=== PATIENT | female | born 1975 | race Caucasian/White ===

== ENCOUNTER 2016-09-01 05:25 | Inpatient (IN) | payer OTHER ==
[~2016-09-01] VITALS: Ht 165.1 cm; Wt 108.0 kg
[2016-09-01] MEDS ORDERED: Sodium Citrate-Citric Acid 15 mL Solution PO SCH (06:00)
[2016-09-01] MEDS ORDERED: Lidocaine 2% 5 mL Topical Jelly MUC_MEMBRM ONE (06:00)
[2016-09-01] MEDS ORDERED: Lactated Ringer's 1,000 ML IV SCH ×2 (06:00→09:26)
[2016-09-01] MEDS ORDERED: Hemorrhage Kit, Post Partum XX ONE ×2 (06:00→10:05)
[2016-09-01] MEDS ORDERED: Oxytocin 10 Unit/mL Inj IM PRN ×2 (06:00→10:05)
[2016-09-01] MEDS ORDERED: Methylergonovine 0.2 mg/mL Inj IM PRN ×2 (06:00→10:05)
[2016-09-01] MEDS ORDERED: Carboprost 250 mCg/mL Inj IM PRN ×2 (06:00→10:05)
[2016-09-01] MEDS ORDERED: CeFAZolin Inj 2,000 MG in Dextrose 5%-Pha MIX 50 ML IV SCH (06:45)
[2016-09-01 06:46] LABS: Mean Corpuscular Hemoglobin 29.3 pg (27.0-35.0); Mean Corpuscular Volume 88.9 fL (81-100)
--- NOTE | 2016-09-01 09:25 | PCM.HPANE ---
Patient Data Date of Service: September 01, 2016 Surgeon Admitting Provider:Kirill Rojas MD Attending Provider:Kirill Rojas MD Primary Care Physician:Junito Tatum MD Other Provider:Mirian Shepard Anesthesia Reason for Visit repeat repeat Ht/WT & BMI Body Mass Index Allergies Coded Allergies: prazosin (Verified Adverse Reaction, Severe, severe reflex tachycardia, ) Past Anesthesia History Anesthesia History: Positive for:: Anesthesia Reactions (angioedema after intrathecal morphine, tolerates other routs without problem.) Diabetes History Hx Diabetes?: No MRSA MRSA: No Medications Hypertension Medication: No History History of ENT Problems?: No HEENT History: Denies:: Abnormal Airway Cataracts Difficult Intubation Dysphagia Glaucoma Hearing Problem Sinus Problem TMJ Denture Type: None Teeth Condition: Broken Teeth Hx of Heart Problems?: No Cardiovascular History: Denies:: AICD Abdominal Aortic Aneurism Atrial Fibrillation Cardiac Surgery Chest Pain Congestive Heart Failure Coronary Artery Disease Edema Heart Murmur Hypertension Irregular Heartbeat Pacemaker Peripheral Vascular Rheumatic Fever Thrombophlebitis Valvular Heart Disease Hx of Respiratory Problem?: No Respiratory History: Denies:: Asthma COPD Chest Surgery Cough Dyspnea Emphysema Hemoptysis Oxygen Administration Pneumonia Pulmonary Embolism Tuberculosis Use of C-PAP Machine Use of Inhalers / NEBS Hx Neurologic Problems?: No Neurological History: Denies:: Alzheimer's Disease CVA Dementia Dizziness Headaches Multiple Sclerosis Parkinson's Disease Peripheral Neuropathy Seizures TIA Hx of GI Problems?: Yes Gastrointestinal History: Positive for:: Gastroesphageal Reflux Hx of Problems?: No Genitourinary History: Denies:: HX of Hemodialysis Kidney Stones Urinary Tract Infection HX of Peritoneal Dialysis: No Female Hx: Positive for:: Currently Skin History: Denies:: History Skin Disorders? Pressure Ulcers Hx Musculoskeletal Problems?: Yes Musculoskeletal History: Positive for:: Back Injury Degenerative Joint Hx of Psycho/Social Problems?: No Psycho Social History: Denies:: Anxiety Bipolar Disorder Hx Depression Suicide Attempt Hx Surgeries?: Yes Hx Any Other Health Problems?: No Other History: Denies:: Cancer Endocrine Disease Hospitalization Thyroid Disease History Blood Transfusions: Denies:: Accept Blood Products? Blood Transfuse Reaction Blood Transfusions Hx Alcohol Use: NoHx Substance Use: No Smoking Status: Former Smoker Have You Smoked inLast 12 mo: No Stop/Bang Treated for Sleep Apnea?: No Do You Have a CPAP Machine?: No S-Snoring: Do You Snore Loudly: No T-Tired: feel tired, fatigued: No O-Obsered: Observed not breath: No P-Blood Pressure: treated: No B- Body Mass Index > 35 kg/m2: Yes A- Age over 50: No N- Neck Large Circumference: No G- Gender Male: No KERON Risk Assessment: Low Risk, <3 Yes Risk Assessment Category Category 1A: Patient has history of documented sleep apnea, and HAS NOT received any narcotic, sedative or anesthesia administration during this stay. Category 1B: Patient has history of documented sleep apnea, and HAS received any narcotic , sedative or anesthesia administration during this stay Category 2: Patient has SUSPECTED Obstructive Sleep Apnea, and HAS received any narcotic , sedative or anesthesia administration during this stay. Category 3: Patient has SUSPECTED Obstructive Sleep Apnea and HAS NOT received narcotic, sedative or anesthesia administration during this stay. Category 4: Outpatient in Procedural Areas with known sleep apnea or who screen positive for High Risk via the STOP/BANG questionnaire. Exam Exam General Appearance: Oriented X3 HEENT/AIRWAY: MP 2 Lungs: Clear to Auscultation Heart: Exam Unremarkable Meds/Labs/Diagnostics Admission Meds Current Medications Lactated Ringer's (Lr) 1,000 ml @ 125 mls/hr Q8H IV Last administered on 06:34; Start 09/01/16 at 06:00; Stop 09/01/16 at 13:59 Citric Acid/ Sodium Citrate (Bicitra) 30 ml PREOP PO Last administered on 08:12; Start 09/01/16 at 06:00; Stop 09/01/16 at 06:40; Status DC Labs Test 09/01/16 06:25 White Blood Count 7.8th/mm3 (3.8-10.1) Red Blood Count 3.69mil/mm3 (3.90-5.20) Hemoglobin 10.8g/dL (12.0-15.6) Hematocrit 32.8% (35.0-46.0) Mean Corpuscular Volume 88.9fL (81-100) Mean Corpuscular Hemoglobin 29.3pg (27.0-35.0) Mean Corpuscular Hemoglobin Concent 32.9% (32.0-37.0) Red Cell Distribution Width 14.8% (12.3-15.4) Platelet Count 284bil/L (150-400) Plan Impression Patient chart reviewed, patient interviewed and anesthestic plan with risks, benefits, and alternatives discussed, and informed consent obtained. ASA Physical Status: ASA2 Mod Systemic Disease Anesthetic Plan: SAB Bene/Risks/Altern/Consents: Yes HP Complete Prior to Induction: Yes Jensen Lipscomb MD September 01, 2016 09:25
[2016-09-01] MEDS ORDERED: Lactated Ringer's 500 ML IV PRN (09:26)
[2016-09-01] MEDS ORDERED: MetoCLOpramide 5 mg/mL 2 mL Inj IVPUSH PRN (09:30)
[2016-09-01] MEDS ORDERED: HYDROmorphone 1 mg/mL Inj IVPUSH PRN (09:30)
[2016-09-01] MEDS ORDERED: fentaNYL-PF 50 mCg/mL 2 mL Inj IVPUSH PRN (09:30)
[2016-09-01] MEDS ORDERED: Dexamethasone 4 mg/mL Inj IVPUSH PRN (09:30)
[2016-09-01] MEDS ORDERED: Ondansetron 2 mg/mL 2 mL Inj IVPUSH PRN ×2 (09:30→10:05)
[2016-09-01] MEDS ORDERED: Phenylephrine 10,000 mCg/mL Inj IVPUSH PRN (09:30)
[2016-09-01] MEDS ORDERED: EPHEDrine Sulfate 50 mg/mL Inj IVPUSH PRN (09:30)
[2016-09-01] MEDS: Lactated Ringer's 1,000 ML IV SCH ×2 (10:04→18:04)
[2016-09-01] MEDS ORDERED: Dextrose 5% 500 ML IV SCH (10:04)
[2016-09-01] MEDS ORDERED: LANOlin HPA 7 Gm Ointment TOPICAL PRN (10:05)
[2016-09-01] MEDS ORDERED: Sodium Chloride LOK Flush 10 mL Syringe IVFLUSH PRN (10:05)
[2016-09-01] MEDS ORDERED: HYDROmorphone PCA 0.2 mg/mL 30 mL Inj IV PRN (10:05)
[2016-09-01] MEDS ORDERED: diphenhydrAMINE 50 mg Capsule PO PRN (10:05)
[2016-09-01] MEDS ORDERED: Oxytocin 30 Units/500 mL LR 30 UNITS in IV Premix 1 EACH IV PRN (10:05)
[2016-09-01] MEDS ORDERED: hydrOXYzine Pamoate 25 mg Capsule PO PRN (10:05)
[2016-09-01] MEDS ORDERED: Oxytocin 30 Units/500 mL LR Premix IV ONE (10:10)
--- NOTE | 2016-09-01 10:50 | OP ---
[address] [address] OPERATIVE REPORT PATIENT: LOVE ZARATE : 1975 MR#: [id number] ADMIT: 09/01/2016 JOB ID: [id number] DATE OF SURGERY: 09/01/2016 PREOPERATIVE DIAGNOSIS(ES): 1. A 39-week gestation. 2. Previous delivery x2. 3. Advanced maternal age. POSTOPERATIVE DIAGNOSIS(ES): 1. A 39-week gestation. 2. Previous delivery x2. 3. Advanced maternal age. PROCEDURE PERFORMED: 1. Repeat low transverse delivery. 2. Bilateral tubal ligation using modified [place] method. SURGEON: Kirill Rojas MD. CONTRACTING EXECUTIVE: Kaycee Costello MD. ANESTHESIA: Spinal. ESTIMATED BLOOD LOSS: 600 mL. COMPLICATIONS: None. PATHOLOGY SENT: Portion of right and left fallopian tubes. FINDINGS AT TIME OF SURGERY: Normal appearing uterus, fallopian tubes and ovaries bilaterally. There were no significant intraperitoneal adhesions. DESCRIPTION OF PROCEDURE: The patient was taken to the operating room, where her spinal anesthesia was found be adequate. She was placed in a lithotomy position in a leftward tilt, and prepared and draped in a normal sterile fashion. A Pfannenstiel incision was made with a scalpel through her previous scar. This was carried down to the underlying fascia, which was nicked in the midline and extended laterally with the [place] scissors. The underlying rectus muscle was dissected off with blunt and sharp dissection both superiorly and inferiorly. The rectus muscles in midline, and the peritoneal cavity was entered bluntly with the surgeon's hands. This incision was extended with gentle traction. The lower uterine segment was identified. A bladder flap was created, and the uterus incised in low transverse fashion with the scalpel. The was delivered in a cephalic presentation. One minute was allowed prior to doubly clamping and ligating the umbilical cord. The cord was cut, and the handed off to the waiting nurses and respiratory therapist. Cord blood was sent. The placenta was removed manually. The uterus was exteriorized, cleared of all clots and debris. The uterine incision was repaired in two layers with 0 Vicryl suture. A third suture of 0 Vicryl was used for hemostasis. A bilateral tubal ligation was then performed using a modified [place] method. The right fallopian tube was identified, followed out to the fimbriated end, grasped in the midportion with a Rafiq clamp. A defect was made in the mesosalpinx, and two free ties of 0 chromic suture were used to isolate and ligate a segment of the fallopian tube. The intervening segment was excised and sent to Pathology. In a similar fashion, the left fallopian tube was followed out to the fimbriated end, grasped in the mid isthmic portion and a defect made in the mesosalpinx. Two free ties of 0 chromic suture were used to isolate and ligate a segment of tube. The intervening segment excised. The tubal lumens were then cauterized bilaterally. Good hemostasis ensured. The uterus was returned to the patient's peritoneal cavity. The gutters were then irrigated with copious amounts of normal saline. Then, the uterine incision was made hemostatic. The fascia was inspected for any defects, and there were no defects appreciated. The fascia was then reapproximated with 0 Vicryl suture in a running fashion. Two sutures were used. They were anchored at apices and ran to the midline and tied separately. A subcutaneous layer was closed with 0 plain gut. The skin was closed with 4-0 Monocryl in a subcuticular fashion. Dermabond and Steri-Strips applied. All lap, instrument, and needle counts correct x2 at the end of procedure. The patient was taken to her recovery room awake and in good condition.
[2016-09-01] MEDS: Acetaminophen IV 1,000 MG in IV Premix 1 EACH IV PRN ×3 (11:48→23:39)
[2016-09-01] MEDS ORDERED: Ondansetron 2 mg/mL 2 mL Inj ONE ×2 (13:59)
[2016-09-01] MEDS ORDERED: MetoCLOpramide 5 mg/mL 2 mL Inj ONE ×2 (13:59)
[2016-09-01] MEDS ORDERED: Phenylephrine/NS-PF 100 mCg/mL 5 mL Syringe IVPUSH ONE ×2 (13:59)
[2016-09-01] MEDS ORDERED: EPHEDrine/NS 5 mg/mL 5 mL Syringe ONE ×2 (13:59)
[2016-09-01] MEDS ORDERED: Oxytocin 10 Unit/mL Inj ONE ×2 (13:59)
[2016-09-02] MEDS: Acetaminophen IV 1,000 MG in IV Premix 1 EACH IV PRN (05:44)
[2016-09-02 07:27] LABS: Mean Corpuscular Hemoglobin 29.1 pg (27.0-35.0); Mean Corpuscular Volume 90.3 fL (81-100)
--- NOTE | 2016-09-02 07:56 | PCM.PNOBPP ---
Subjective Date of Service September 02, 2016 Post : Repeat Ceserean Delivery (with bilateral tubal ligation) Visit History 41-year-old 3 now para 3 status post a repeat delivery with bilateral tubal ligation. Her was uncomplicated. Subjective Patient has no complaints today and reports that her pain has been controlled with the IV Tylenol and Toradol. She is ambulating and voiding without difficulty. Lochia: Normal Pain Management: PO pain meds Gastrointestinal: Good Appetite, No N/V Postop Activity: Ambulating Independently Group B Strep Results: Negative Rubella: Immune Blood Type: O RH Type: Positive Labs Laboratory Tests 09/02/16 06:40: White Blood Count 8.3, Red Blood Count 3.40, Hemoglobin 9.9, Hematocrit 30.7, Mean Corpuscular Volume 90.3, Mean Corpuscular Hemoglobin 29.1, Mean Corpuscular Hemoglobin Concent 32.2, Red Cell Distribution Width 15.0, Platelet Count 275 Exam Vital Signs Vital Signs: VS reviewed, stable Exam Heart: Exam Unremarkable General: Alert, Oriented X3, Cooperative, No Acute Distress Surgical Wound : Dressing & Drainage Status: Dry & Intact OB Post Assessment/Plan Problems: (1) Previous , delivered, current hospitalization Plan: Patient is doing well day #1 status post repeat delivery with bilateral tubal ligation. She would like to go home today possible. We'll anticipate discharge home this afternoon once she is tolerating a regular diet and pain is managed with oral medication. Status: Acute ICD Code: O34.219 Pain Evaluation: Adequate Pain Control Post plan: Continue routine post care, Anticipate discharge home today Kirill Rojas MD September 02, 2016 07:56
[2016-09-02] MEDS ORDERED: Ascorbic Acid 500 mg Tablet PO SCH (08:00)
--- NOTE | 2016-09-02 09:00 | PCM.DIOB ---
Obstetrical Disch Instruction Date of Service: September 01, 2016 Dates of Hospitalization Date of Hospital Admission September 01, 2016 at 05:25 Providers Admitting Physician: Kirill Rojas MD Primary Care Physician: Junito Tatum MD Attending Physician: Kirill Rojas MD Discharge Diagnosis Discharge Diagnosis 1. Repeat Delivery with bilateral tubal ligation. 2. Problems: (1) Previous , delivered, current hospitalization Status: Acute ICD Code: O34.219 Diet Discharge Diet: No restrictions Activity Discharge Activity-General: Pelvic Rest for 6 weeks, Try not to overdue, Balance rest and activity, No lifting >10 pounds for 4-6 weeks Dressing and Incisional Care Dressing Care: Remove outer dressing after 24 hrs Hygiene: May shower, Wash incision with soap & water, DO NOT soak incision under water, NO bathtub, hot tub or whirlpool (until vaginal discharge or bleeding has resolved.) Follow Up Plan Follow-up Provider (F9): Kirill Rojas MD Follow-up appointment: Weeks (2) Call your provider for: Fever or Chills, Shortness of breath, Heavy vaginal bleeding, Red painful breasts, Other (drainage from incision) Kirill Rojas MD September 02, 2016 09:00
[2016-09-02] MEDS ORDERED: OXYC1TAB24 PO (09:03)
--- NOTE | 2016-09-02 09:07 | PCM.DC.OB ---
Obstetrical Discharge Summary Date of Service September 02, 2016 Date of hospital admission September 01, 2016 at 05:25 Date of Discharge: September 02, 2016 Providers Admitting Physician: Kia Cuevas MD Primary Care Physician: Junito Tatum MD Attending Physician: Kia Cuevas MD Diagnosis at Time of Discharge 1. 2. Postoperative Day 1 s/p repeat delivery with bilateral tubal ligation Problems: (1) Previous , delivered, current hospitalization Plan: Discharge home today. Status: Acute ICD Code: O34.219 Date of Procedure: August 31, 2016 Pathology Portion of right and left fallopian tubes Brief History and Physical: Patient is a 41-year-old 4 para 20 12 who has a history of 2 prior deliveries who is scheduled for a repeat delivery with bilateral tubal ligation on 09/01/2016. Her has been uncomplicated. She does have advanced maternal age, but her genetic testing was all negative. Hospital Course: She had a repeat delivery with bilateral tubal ligation on 09/01/2016 without complication. She did well on day 1 and was ambulating, voiding, tolerating a regular diet and her pain was well controlled. oxyCODONE-Acetaminophen 5-325 mg (oxyCODONE-Acetaminophen 5-325 mg) 1 Each Tablet 1 TAB PO Q4H PRN PRN For Pain Prescribed by: KIA CUEVAS MD Discharge Activity-General: Pelvic Rest for 6 weeks, No lifting >15 pounds for 2 weeks Kia Cuevas MD September 02, 2016 09:07
[2016-09-02] MEDS ORDERED: Measles-Mumps-Rubella Vaccine 0.5 mL Inj SUBQ ONE (11:00)
[2016-09-02] MEDS: oxyCODONE-Acetamin 5-325 mg Tablet PO PRN ×2 (11:12→15:17)
[2016-09-02 15:00] VITALS: BP 98/58; PULSE 64; RESP 16
--- NOTE | 2016-09-02 15:14 | PATH ---
SURGICAL PATHOLOGY Attending Physician:Kirill Rojas, CASE STATUS: Signed Out PATIENT NAME: LOVE ZARATE PID: [id number] : 1975 DATE COLLECTED:09/01/2016 21:34 SPECIMEN: 1: Fallopian Tube, Sterilization 2: Fallopian Tube, Sterilization CLINICAL HISTORY: 1). PORTION OF RIGHT FALLOPIAN TUBES 2). PORTION OF LEFT FALLOPIAN TUBES FINAL DIAGNOSIS: 1.PORTION OF RIGHT FALLOPIAN TUBE: SEGMENT OF FALLOPIAN TUBE, IDENTIFIED. 2.PORTION OF LEFT FALLOPIAN TUBE: SEGMENT OF FALLOPIAN TUBE, IDENTIFIED. ICD10 CODE Z30.2 GROSS DESCRIPTION: The specimen is received in 2 containers not labeled as to the fixative and labeled with the patient's name. 1). The specimen is sublabeled "right fallopian tube" and consists of a 3.0 x 0.9 x 0.5 CM portion of tissue. The specimen is inked blue. 4 entry level sales representative sections are submitted in cassette 1A. 2). The specimen is sublabeled "left fallopian tube" and consists of a 4.0 x 0.7 x 0.7 CM portion of tissue. The specimen is inked blue. 4 entry level sales representative sections are submitted in cassette 2A. 09/01/2016 DAC MICRO DESCRIPTION: See diagnosis. ICD-9 CODES: CPT CODES: 1: 49679 2: 45042 Electronically Signed Out Kimo Stewart MD [facility] Pathology [facility], [place] [address] Technical component performed at [facility], [address] [place] [address] [address], [place], [address]
== END 2016-09-02 14:00 | disposition home or self-care (01) | DRG 766 ==
LOC: FBC 05:25 → EDSTATUS 07:15
PROVIDERS: ADMIT Obstetrics & Gynecology; ATTEND Obstetrics & Gynecology
PROC: 0UB70ZZ Excision of Bilateral Fallopian Tubes, Open Approach (ICD-10-PCS; 2016-09-01)
PROC: 10D00Z1 Extraction of Products of Conception, Low, Open Approach (ICD-10-PCS; principal; 2016-09-01 07:15)
DX: O34.211 Maternal care for low transverse scar from previous cesarean delivery (principal); Z37.0 Single live birth; Z3A.39 39 weeks gestation of pregnancy; Z30.2 Encounter for sterilization